=== PATIENT | female | born 1970 | race Caucasian/White ===

== ENCOUNTER 2016-09-17 18:20 | Observation (INO) | payer BC ==
[~2016-09-17] VITALS: Ht 157.5 cm; Wt 79.4 kg
[~2016-09-17 18:20] MED LIST: ADVAIR 500/501 DISK IH; ASPIR-TRIN325 M1 PO; Advair HFA 230/21 IH; CLARITIN,ALAVAR10 MG PO; PAXIL30 MG PO; PROAIR HFA8.5 GM IH; Proventil,Ventolin H IH; SINGULAIR10 MG PO; Singulair PO; TYLENOL OTC; Vicodin,Lortab 5/500 PO; ZYRTEC10 MG PO
[2016-09-17 18:49] LABS: HEMATOCRIT 37.4 % (36.0-46.0); MCH 29.8 PG (29.0-34.0); MCV 85.2 FL (83-99); MEAN PLAT.VOLUME 9.8 uM^3 (9.5-12.4); PLATELET COUNT 417 K/uL (156-360); RBC DIS.WIDTH-CV 12.6 % (11.8-14.6); RBC DIS.WIDTH-SD 39.2 % (39-53); RED BLOOD COUNT 4.39 M/uL (3.80-5.20)
[2016-09-17 19:01] LABS: CHLORIDE 106 mEq/L (99-109); POTASSIUM 3.8 mEq/L (3.7-5.4); SODIUM 136 mEq/L (136-147)
[2016-09-17 19:02] LABS: GLUCOSE 94 mg/dL (70-99)
[2016-09-17 19:04] LABS: ANION GAP 8 MEQ/L (2-14)
[2016-09-17 19:06] LABS: GFR ESTIMATE (CALCULATED) > 59 mL/min/
[2016-09-17 19:07] LABS: UREA NITROGEN (BUN) 12 mg/dL (9-23)
[2016-09-17 19:11] LABS: TROP-I INTERPRETATION NEGATIVE; TROPONIN-I < 0.01 ng/mL (0.0-0.30)
[2016-09-17 19:14] LABS: QUANTITATIVE HCG < 4.0 MIU/ML
[2016-09-17] MEDS ORDERED: PROAIR HFA8.5 GM IH (23:06)
[2016-09-17] MEDS ORDERED: ALBUTEROL1.25 MG/3 IH (23:07)
[2016-09-17] MEDS ORDERED: ADVAIR 500/501 DISK IH (23:07)
[2016-09-17] MEDS ORDERED: ZYRTEC10 M3 PO (23:07)
[2016-09-17] MEDS ORDERED: SINGULAIR10 MG PO (23:07)
[2016-09-18 00:08] VITALS: BP 121/68
[2016-09-18 01:59] LABS: METH RESISTANT S AUREUS PCR NEGATIVE (NEGATIVE); PROBE CHECK PASS; SPECIMEN PROCESSING CONTROL PASS
[2016-09-18 03:57] VITALS: BP 126/60
[2016-09-18 07:22] LABS: HEMATOCRIT 36.9 % (36.0-46.0); MCH 30.3 PG (29.0-34.0); MCV 86.6 FL (83-99); MEAN PLAT.VOLUME 10.8 uM^3 (9.5-12.4); PLATELET COUNT 381 K/uL (156-360); RBC DIS.WIDTH-CV 12.7 % (11.8-14.6); RBC DIS.WIDTH-SD 40.3 % (39-53); RED BLOOD COUNT 4.26 M/uL (3.80-5.20); WHITE BLOOD COUNT 13.7 K/uL (4.1-10.2)
[2016-09-18 07:31] VITALS: BP 124/74
[2016-09-18 07:55] LABS: ANION GAP 11 MEQ/L (2-14); CHLORIDE 102 MEQ/L (99-109); GFR ESTIMATE (CALCULATED) > 59 mL/min/; POTASSIUM 4.2 MEQ/L (3.7-5.4); SAMPLE HEMOLYSIS CHECK 0; SAMPLE ICTERIC CHECK 0; SAMPLE LIPEMIA CHECK 0; SODIUM 136 MEQ/L (136-147); UREA NITROGEN (BUN) 10 mg/dL (9-23)
[2016-09-18 07:56] LABS: GLUCOSE 152 mg/dL (70-99)
[2016-09-18 08:23] LABS: INTERNAL CONTROL VALID? YES
[2016-09-18] MEDS ORDERED: ZITHROMAX500 MG PO (09:28)
[2016-09-18] MEDS ORDERED: PREDNISONE10 MG PO (09:28)
== END 2016-09-18 10:47 | disposition home or self-care (01) ==
LOC: EME 18:20 → EDOF 22:54 → 5WEST 23:48
PROVIDERS: Internal Medicine; Physician Assistant
DX: J45.41 Moderate persistent asthma with (acute) exacerbation (principal); G43.909 Migraine, unspecified, not intractable, without status migrainosus; F41.9 Anxiety disorder, unspecified; E66.9 Obesity, unspecified; Z68.32 Body mass index [BMI] 32.0-32.9, adult; R22.2 Localized swelling, mass and lump, trunk
CPT/HCPCS: 71275; 80048; 84484; 84702; 85027; 87449; 87641; 93005; 94640; 94640 76; 94760; 94799; 99202; 99281; 99285; G0378; J1644; J2930; J3475; J7030

== ENCOUNTER 2017-12-17 11:06 | Day surgery (SDC) | payer OTHER ==
[~2017-12-17] VITALS: Ht 154.9 cm; Wt 76.2 kg
[~2017-12-17 11:06] MED LIST changes: +ALBUTEROL1.25 MG/3 IH; +PREDNISONE10 MG PO; +PROZAC20 MG PO; +SPIRIVA1 INHALATI IH; +TOPAMAX50 MG PO; +ZITHROMAX500 MG PO; +ZYRTEC10 M3 PO
[2017-12-17 12:25] VITALS: BP 119/64
[2017-12-17 16:20] VITALS: BP 122/57
[2017-12-17 17:14] VITALS: BP 125/57
[2017-12-17 18:15] VITALS: BP 122/56
== END 2017-12-17 18:40 | disposition home or self-care (01) ==
LOC: SDC 11:06
PROC: 0SPG04Z Removal of Internal Fixation Device from Left Ankle Joint, Open Approach (ICD-10-PCS; principal; 2017-12-17)
DX: T84.84XA Pain due to internal orthopedic prosthetic devices, implants and grafts, initial encounter (principal); J45.909 Unspecified asthma, uncomplicated; F41.9 Anxiety disorder, unspecified; G43.909 Migraine, unspecified, not intractable, without status migrainosus; Z88.2 Allergy status to sulfonamides; Y83.1 Surgical operation with implant of artificial internal device as the cause of abnormal reaction of the patient, or of later complication, without mention of misadventure at the time of the procedure
CPT/HCPCS: 73600; 76000; 93005; J0330; J0690; J1100; J1170; J1200; J2405; J2765; J3010